=== PATIENT | female | born 1955 | race Caucasian/White ===

== ENCOUNTER → 2017-01-19 | Outpatient (CLI) | payer MEDICARE ==
[~2017-01-19] MED LIST: ALLO100T PO; BACL10TA PO; BUME0.5T11 PO; CALC600T12 PO; CYAN10006 INJ; DIGO125T88 PO; FERR-67 PO; GABA-329 PO; LEVO112T7 PO; MULT-933 PO; OXYC-541 PO; PANT40TA27 PO; POLY17PO6 PO; TRAM50TA4 PO; VENL-68 PO; ZOLP10TA2 PO
--- NOTE | 2017-01-19 17:38 | DI ---
Indication: ITS.REASON: C21.8 Malignant neoplasm of overlapping sites of re; C81.1; D51.8 PROCEDURE: CT CHEST/ABDOMEN/PELVIS W/O: Encounter: Subsequent Comparison: None Technique: Axial CT images were performed through the chest, abdomen and pelvis without intravenous contrast. Coronal and sagittal two-dimensional reformats. Automated Exposure Control and Iterative Reconstruction dose reducing techniques were utilized. Findings: Chest: The lungs appear mildly emphysematous. There is some discoid atelectasis in both lung bases. No definite pleural effusion. No definite mediastinal or hilar adenopathy. No definite axillary adenopathy. No definite bony destructive process. There is mild cardiomegaly. No definite pericardial effusion. No pleural effusion. Abdomen: The liver is unremarkable in contour. The spleen is been removed. The pancreas is unremarkable in contour. The left kidney has undergone some atrophy compared to the right. There may be a hyperdense focus centrally within the right kidney that may represent a nonobstructing urinary calculus in the anterior superior calyx. No definite retroperitoneal or mesenteric adenopathy. The gallbladder is small and contracted. No definite skeletal metastasis. Pelvis: The urinary bladder is not distended. There is moderate subcutaneous edema in the anterior subcutaneous tissues of the pelvis. There is also moderate perirectal edema, similar to prior exam. There is a small uterus in the left pelvis, unchanged. No definite bony destructive process. Impression: No significant change from prior examination. The exam is limited by the absence of IV contrast. .
== END ==
LOC: IMA 12:53
PROVIDERS: ATTEND Internal Medicine Hematology & Oncology
DX: C21.8 Malignant neoplasm of overlapping sites of rectum, anus and anal canal (principal); C81.01 Nodular lymphocyte predominant Hodgkin lymphoma, lymph nodes of head, face, and neck; D51.8 Other vitamin B12 deficiency anemias

== ENCOUNTER → 2017-01-23 | Outpatient (CLI) | payer MEDICARE ==
[2017-01-23 13:20] LABS: BASOPHILS % (AUTO) 0.6 % (0-2); EOSINOPHILS # (AUTO) 0.2 T/MM3 (0-0.5); EOSINOPHILS % (AUTO) 3.1 % (0-4); HCT - HEMATOCRIT 37.4 % (36-46); HGB - HEMOGLOBIN 12.8 GM/DL (12-16); IMMATURE GRANULOCYTE # (AUTO) 0.01 T/MM3 (0.00-0.03); IMMATURE GRANULOCYTE % (AUTO) 0.2 % (0.0-0.5); LYMPHOCYTES # (AUTO) 0.7 T/MM3 (1-4.8); MEAN CORPUSCULAR HGB 34.9 UUG (26-34); MEAN CORPUSCULAR HGB CONC(MCHC 34.2 GM/DL (31-37); MEAN CORPUSCULAR VOLUME 101.9 UM3 (80-100); MEAN PLATELET VOLUME 8.9 UM3 (9.4-12.4); MONOCYTES # (AUTO) 0.5 T/MM3 (0-0.8); MONOCYTES % (AUTO) 8.9 % (0-9.0); NEUTROPHILS #(AUTO)-ABSOLUTE 3.8 T/MM3 (1.8-7.7); NEUTROPHILS % (AUTO) 74.2 % (33-66); RED BLOOD COUNT 3.67 M/MM3 (4.00-5.20); WBC - WHITE BLOOD COUNT 5.2 T/MM3 (4.5-11.0)
[2017-01-23 13:38] LABS: ALBUMIN 3.7 G/DL (3.5-5.0); ALBUMIN/GLOBULIN RATIO 1.4 RATIO (1.1-2.2); ALKALINE PHOSPHATASE 224 U/L (38-126); ALT (SGPT) 33 U/L (9-52); ANION GAP 10 MEQ/L (5-15); AST (SGOT) 34 U/L (14-36); BUN/CREATININE RATIO 19 RATIO (6-26); CALCIUM 8.7 MG/DL (8.4-10.2); CHLORIDE 91 MEQ/L (98-107); CO2 - CARBON DIOXIDE 29 MEQ/L (22-30); CREATININE 1.1 MG/DL (0.7-1.2); GLOMERULAR FILTRATION RATE 50; GLUCOSE 104 MG/DL (65-110); LDH 250 U/L (313-618); POTASSIUM 4.6 MEQ/L (3.6-5); SODIUM 130 MEQ/L (134-144); TOTAL PROTEIN 6.3 G/DL (6.3-8.2)
[2017-01-23 14:59] LABS: PROBNP 1630 PG/ML (0-175)
== END ==
LOC: LAB 12:46
PROVIDERS: ATTEND Internal Medicine Hematology & Oncology
DX: C21.8 Malignant neoplasm of overlapping sites of rectum, anus and anal canal (principal); C81.01 Nodular lymphocyte predominant Hodgkin lymphoma, lymph nodes of head, face, and neck; D51.8 Other vitamin B12 deficiency anemias
CPT/HCPCS: 36415; 80053; 82378; 83615; 83735; 83880; 85025